=== PATIENT | female | born 2000 | race Two or more races ===

== ENCOUNTER 2024-10-12 09:50 | Emergency (ER) | payer OTHER, SELFPAY ==
[~2024-10-12] VITALS: Ht 157.5 cm; Wt 80.2 kg
[2024-10-12] MEDS: KETOROLAC 30 MG/ML 1 ML VIAL IV ONE (14:46)
[2024-10-12] MEDS: diphenhydrAMINE 50 MG/ML VIAL IV STA (14:46)
[2024-10-12 16:02] VITALS: BP 121/68; TEMP 97.9; O2SAT 100
== END 2024-10-12 16:25 | disposition home or self-care (01) ==
LOC: M ED 09:50
DX: R51.9 Headache, unspecified (principal); Z32.01 Encounter for pregnancy test, result positive
CPT/HCPCS: 84702; 96374; 99284; J1200; J1885; J2765

== ENCOUNTER → 2024-11-04 | Outpatient (REF) | payer OTHER | LOC: M SFHCLERA 14:36 | PROVIDERS: ATTEND Student in an Organized Health Care Education/Training Program | DX: Z32.00 Encounter for pregnancy test, result unknown (principal); Z53.9 Procedure and treatment not carried out, unspecified reason ==

== ENCOUNTER → 2024-11-10 | Outpatient (REF) | payer OTHER | LOC: M PLALAB 09:41 | PROVIDERS: ATTEND Obstetrics & Gynecology | DX: Z34.80 Encounter for supervision of other normal pregnancy, unspecified trimester (principal) ==

== ENCOUNTER 2024-12-12 11:41 | Emergency (ER) | payer OTHER ==
[~2024-12-12] VITALS: Ht 157.5 cm; Wt 86.0 kg
[2024-12-12] MEDS ORDERED: MULTTAB20 PO (11:48)
[2024-12-12 14:11] LABS: KETONE, URINE MANUAL REFLEX NEGATIVE (NEGATIVE); NITRITE, URINE MANUAL RFX NEGATIVE (NEGATIVE); PROTEIN, URINE MANUAL REFLEX NEGATIVE (NEGATIVE); SP GRAVITY,URINE MANUAL REFLEX 1.030 (1.002-1.035); UROBILINOGEN, UA MANUAL REFLEX NORMAL (NORMAL)
[2024-12-12] MEDS ORDERED: LIDO1ADH10 TP (15:45)
[2024-12-12] MEDS ORDERED: SUMA25TA3 PO (15:45)
[2024-12-12 15:50] VITALS: BP 135/84; TEMP 97.9; O2SAT 98
== END 2024-12-12 15:57 | disposition home or self-care (01) ==
LOC: M ED 11:41
DX: R51.9 Headache, unspecified (principal); Z79.899 Other long term (current) drug therapy; Z79.810 Long term (current) use of selective estrogen receptor modulators (SERMs)

== ENCOUNTER → 2024-12-12 | Outpatient (CLI) | payer OTHER ==
[~2024-12-12] MED LIST: LIDO1ADH10 TP; MULTTAB20 PO; SUMA25TA3 PO
[2024-12-12 13:29] LABS: PLATELET COUNT, AUTOMATED 339 10^3/uL (150-450)
[2024-12-12 14:26] LABS: HEPATITIS C VIRUS ABY INDEX < 0.02 INDEX (<0.8); HIV 1&2 SCREEN NEGATIVE (NEGATIVE)
[2024-12-12 14:55] LABS: Trichomonas vaginalis (AMP) NOT DETECTED (NEGATIVE)
[2024-12-12 15:18] LABS: GC DNA AMPLIFICATION NEGATIVE (NEGATIVE)
== END ==
LOC: M PLALAB 09:37
PROVIDERS: ATTEND Obstetrics & Gynecology
DX: Z34.80 Encounter for supervision of other normal pregnancy, unspecified trimester (principal)

== ENCOUNTER → 2025-01-09 | Outpatient (CLI) | payer OTHER | LOC: M PLALAB 10:24 | PROVIDERS: ATTEND Student in an Organized Health Care Education/Training Program | DX: Z34.80 Encounter for supervision of other normal pregnancy, unspecified trimester (principal); Z53.9 Procedure and treatment not carried out, unspecified reason ==

== ENCOUNTER → 2025-02-02 | Outpatient (CLI) | payer OTHER | LOC: M WHC 10:11 | PROVIDERS: ATTEND Student in an Organized Health Care Education/Training Program | DX: Z34.80 Encounter for supervision of other normal pregnancy, unspecified trimester (principal) ==

== ENCOUNTER → 2025-02-19 | Outpatient (CLI) | payer OTHER | LOC: M WHC 07:20 | PROVIDERS: ATTEND Specialist | DX: Z34.82 Encounter for supervision of other normal pregnancy, second trimester (principal); Z3A.21 21 weeks gestation of pregnancy ==